=== PATIENT | male | born 1970 | race Caucasian/White ===

== ENCOUNTER 2016-07-07 13:40 | Emergency (ER) | payer OTHER ==
[~2016-07-07] VITALS: Ht 170.2 cm; Wt 105.0 kg
[~2016-07-07 13:40] MED LIST: IBUP-238
[2016-07-07 13:42] VITALS: BP 152/72; PULSE 81; RESP 15; TEMP 98; O2SAT 95
--- NOTE | 2016-07-07 14:56 | PD ---
HPI Chief Complaint: Cold / Flu Symptoms Time Seen by Provider: 14:56 Travel History International Travel<30 days: No Contact w/Intl Traveler<30days: No Traveled to known affect area: No History of Present Illness HPI 45 year old male presents to the ED for evaluation of 3 week history of sinus congestion, clear rhinorrhea, nonproductive cough, wheezing, shortness of breath. Patient states that he had a bloody nose after an episode of rhinorrhea today which prompted him to seek treatment. He denies fever, chills , chest pain, palpitations, abdominal pain, nausea or vomiting. He was seen at an outpatient facility approximately 2 weeks ago, provided with a rescue inhaler. He states this has helped to improve his symptoms. He denies this years flu vaccine. Current smoker, 1.25 packs per day. PFSH Past Surgical History Appendectomy: Yes Social History Alcohol Use: Yes Tobacco Use: Yes Allergies-Medications (Allergen,Severity, Reaction): Coded Allergies: No Known Allergies (Verified , 07/07/16) Reported Meds & Prescriptions Reported Meds & Active Scripts Active Flonase Allergy Relief Nasal [place] (Fluticasone Nasal [place]) 50 Mcg/Act [place] 50 Mcg EACH NARE BID Medrol Dosepak (Methylprednisolone) 4 Mg Dspk 4 Mg PO DIRECTED Per Pharmacist direction Tessalon Perles (Benzonatate) 100 Mg Cap 100 Mg PO TID PRN Reported Singulair (Montelukast Sodium) 10 Mg Tab 10 Mg PO HS Proair Hfa 8.5 GM Inh (Albuterol Sulfate) 90 Mcg/Act Aer 2 Puff INH Q4-6H PRN 108 mcg/actuation Motrin (Ibuprofen) 800 Mg Tab Review of Systems Except as stated in HPI: all other systems reviewed are Neg Physical Exam Narrative GENERAL: Well-nourished, well-developed white male in no acute distress. SKIN: Warm and dry. HEAD: Normocephalic. Atraumatic. EYES: No scleral icterus. No injection or drainage. PERRLA. EOMI. ENT: Right-sided Pearly aguilar tympanic membrane. Left tympanic membrane obscured by cerumen. Nasal mucosa is moist, erythematous. Oropharynx mild posterior oropharyngeal erythema. No edema or exudate. NECK: Supple, trachea midline. No JVD or lymphadenopathy. CARDIOVASCULAR: Regular rate and rhythm without murmurs, gallops, or rubs. No carotid bruits. 2+ DP and radial pulses bilaterally. RESPIRATORY: Breath sounds equal bilaterally. Mild to moderate expiratory wheezing in the upper lobes bilaterally. No accessory muscle use. GASTROINTESTINAL: Abdomen soft, non-tender, nondistended. + Bowel sounds MUSCULOSKELETAL: No cyanosis, or edema. Patient is ambulatory and moves extremities spontaneously. BACK: Nontender without obvious deformity. No CVA tenderness. Data Data Last Documented VS Vital Signs Date Time Temp Pulse Resp B/P Pulse Ox O2 Delivery O2 Flow Rate FiO2 07/07/16 16:52 100 07/07/16 13:42 98.0 81 15 152/72 Orders Complete Blood Count With Diff (07/07/16 15:09) Comprehensive Metabolic Panel (07/07/16 15:09) Chest, Single Ap (07/07/16 15:09) Iv Access Insert/Monitor (07/07/16 15:09) Methylprednisolone So Succ Inj (Solumedr (07/07/16 15:15) Albuterol-Ipratropium Neb (Duoneb Neb) (07/07/16 15:15) Sodium Chloride 0.9% Flush (Ns Flush) (07/07/16 15:15) Labs Laboratory Tests Test 07/07/16 15:20 White Blood Count 8.1 TH/MM3 Red Blood Count 4.10 MIL/MM3 Hemoglobin 13.8 GM/DL Hematocrit 39.4 % Mean Corpuscular Volume 96.1 FL Mean Corpuscular Hemoglobin 33.7 PG Mean Corpuscular Hemoglobin 35.1 % Concent Red Cell Distribution Width 13.6 % Platelet Count 273 TH/MM3 Mean Platelet Volume 8.2 FL Neutrophils (%) (Auto) 55.9 % Lymphocytes (%) (Auto) 29.9 % Monocytes (%) (Auto) 7.3 % Eosinophils (%) (Auto) 5.6 % Basophils (%) (Auto) 1.3 % Neutrophils # (Auto) 4.5 TH/MM3 Lymphocytes # (Auto) 2.4 TH/MM3 Monocytes # (Auto) 0.6 TH/MM3 Eosinophils # (Auto) 0.4 TH/MM3 Basophils # (Auto) 0.1 TH/MM3 CBC Comment DIFF FINAL Differential Comment Sodium Level 138 MEQ/L Potassium Level 4.4 MEQ/L Chloride Level 105 MEQ/L Carbon Dioxide Level 25.6 MEQ/L Anion Gap 7 MEQ/L Blood Urea Nitrogen 9 MG/DL Creatinine 0.86 MG/DL Estimat Glomerular Filtration 97 ML/MIN Rate Random Glucose 86 MG/DL Calcium Level 8.9 MG/DL Total Bilirubin 0.3 MG/DL Aspartate Amino Transf 40 U/L (AST/SGOT) Alanine Aminotransferase 53 U/L (ALT/SGPT) Alkaline Phosphatase 78 U/L Total Protein 7.2 GM/DL Albumin 4.1 GM/DL [facility] Medical Decision Making Medical Screen Exam Complete: Yes Emergency Medical Condition: Yes Differential Diagnosis Bronchitis versus reactive airway disease versus pneumonia versus viral syndrome versus other Narrative Course 45 year old male presents to the ED for evaluation of 3 week history of sinus congestion, clear rhinorrhea, nonproductive cough, wheezing, shortness of breath. He denies fever, chills, chest pain, palpitations, abdominal pain, nausea or vomiting. He was seen at an outpatient facility approximately 2 weeks ago, provided with a rescue inhaler which improved his symptoms. He denies this years flu vaccine. Current smoker, 1.25 packs per day. Vitals reviewed. Physical exam reveals a nontoxic-appearing white male in no acute distress. The sinuses are erythematous, boggy. Oropharynx with mild posterior erythema, mild to moderate expiratory wheezing in the upper lung mckeon bilaterally. Physical exam is otherwise unremarkable. IV was established. The patient was administered IV steroids, DuoNeb 3. This did slightly improve his symptoms. CBC without leukocytosis, CMP unremarkable. I provided the patient with prescriptions for fluticasone, Tessalon Perles, Medrol Dosepak. He is instructed to take medication as prescribed, follow up with his primary care provider. These also encouraged to continue with the rescue inhaler. I discussed the importance of quitting smoking, advised him to contact stopped smoking [place] for cessation aids. He indicated understanding of the instructions, is amenable to plan of care. He is stable and discharged home. Diagnosis Primary Impression: Wheezing Additional Impressions: Viral syndrome Smoker Referrals: Primary Care Physician Additional Instructions: Take steroids as prescribed. Tessalon Perles as prescribed for cough. Utilize rescue inhaler as previously prescribed. STOP SMOKING! Follow up with the primary care provider this week. Return to the ED for any urgent or emergent medical condition. Med/Other Pt SpecificInfo: Prescription(s) given Scripts Fluticasone Nasal [place] (Flonase Allergy Relief Nasal [place])50 Mcg/Act Spray50 Mcg EACH NARE BID #1 BOTTLE Ref 0 Prov:Andie Osullivan MD 07/07/16 Methylprednisolone Dosepak (Medrol Dosepak)4 Mg Dspk4 Mg PO DIRECTED #1 DSPK Ref 0 Per Pharmacist direction Prov:Andie Osullivan MD 07/07/16 Benzonatate (Tessalon Perles)100 Mg [id number] Mg PO TID PRN (COUGH) #12 CAP Ref 0 Prov:Andie Osullivan MD 07/07/16 Disposition: 01 DISCHARGE HOME Condition: Stable Cydney Cooper Jul 07, 2016 14:56
[2016-07-07] MEDS ORDERED: ALBUAER3 INH (15:00)
[2016-07-07] MEDS ORDERED: MONT10TA2 PO (15:00)
[2016-07-07] MEDS ORDERED: methylPREDNISolone SOD SUCC 125 MG/2 ML VIAL IVP ONE (15:15)
[2016-07-07] MEDS ORDERED: SODIUM CHLORIDE 0.9% FLUSH 5 ML FLUSH IVF PRN (15:15)
[2016-07-07 15:28] LABS: AUTOMATED NEUTROPHIL # 4.5 TH/MM3 (1.8-7.7); BASOPHIL # 0.1 TH/MM3 (0-0.2); BASOPHIL % 1.3 % (0.0-2.0); EOSINOPHIL # 0.4 TH/MM3 (0-0.4); EOSINOPHIL % 5.6 % (0.0-4.0); HEMATOCRIT 39.4 % (39.0-51.0); HEMO FLAGS DIFF FINAL; LYMPH % 29.9 % (9.0-44.0); LYMPHOCYTE # 2.4 TH/MM3 (1.0-4.8); MEAN CELL VOLUME 96.1 FL (80.0-100.0); MEAN CORPUSCULAR HEMOGLOBIN 33.7 PG (27.0-34.0); MEAN CORPUSCULAR HGB CONC 35.1 % (32.0-36.0); MONO % 7.3 % (0.0-8.0); NEUT % 55.9 % (16.0-70.0); PLATELET COUNT 273 TH/MM3 (150-450); RED CELL DISTRIBUTION WIDTH 13.6 % (11.6-17.2); WHITE BLOOD COUNT 8.1 TH/MM3 (4.0-11.0)
--- NOTE | 2016-07-07 15:52 | RADRPT ---
EXAM DATE/TIME: 07/07/2016 15:30 [place] COMPARISON: No previous studies available for comparison. INDICATIONS : Wheezing MEDICAL HISTORY : Hypertension. Flu Symptoms. SURGICAL HISTORY : None. ENCOUNTER: Initial ACUITY: 1 week PAIN SCORE: 0/10 LOCATION: chest FINDINGS: A single view of the chest demonstrates the lungs to be symmetrically aerated without evidence of mas s, infiltrate or effusion. The cardiomediastinal contours are unremarkable. Osseous structures are intact. CONCLUSION: Normal examination. Ghassan Becerril MD on July 07, 2016 at 15:50 Board Certified Radiologist. This report was verified electronically.
[2016-07-07 15:53] LABS: ALKALINE PHOSPHATASE 78 U/L (45-117); TOTAL BILIRUBIN ADULT 0.3 MG/DL (0.2-1.0)
[2016-07-07 16:00] LABS: ALT (GPT) 53 U/L (12-78); ANION GAP 7 MEQ/L (5-15); AST (GOT) 40 U/L (15-37); BICARBONATE 25.6 MEQ/L (21.0-32.0); BLOOD UREA NITROGEN 9 MG/DL (7-18); CHLORIDE 105 MEQ/L (98-107); GLOMERULAR FILTRATION RATE 97 ML/MIN (>89); POTASSIUM 4.4 MEQ/L (3.5-5.1); SODIUM (NA) 138 MEQ/L (136-145)
[2016-07-07] MEDS: RESP: ALBUTEROL 2.5 MG/IPRATROPIUM 0.5 MG NEB (SCH) INH ×2 (16:14→16:15)
[2016-07-07] MEDS ORDERED: BENZ100 PO (16:38)
[2016-07-07] MEDS ORDERED: FLUT1SPR5 EACH NARE (16:38)
[2016-07-07] MEDS ORDERED: MEDR4PAK PO (16:38)
== END 2016-07-07 16:52 | disposition home or self-care (01) ==
LOC: NETRI 13:40
DX: R06.2 Wheezing (principal); B34.9 Viral infection, unspecified; F17.210 Nicotine dependence, cigarettes, uncomplicated
CPT/HCPCS: 71010; 80053; 85025; 94640; 94664; 96374; 99283; J2930